=== PATIENT | male | born 1940 | race Caucasian/White ===

== ENCOUNTER 2023-05-21 18:05 | Emergency (ER) | payer MEDICARE, BC ==
[2023-05-21] MEDS ORDERED: Sodium Chloride 0.9% 10 ML Syringe FLUSH PRN (18:23)
[2023-05-21 18:29] LABS: BASOPHILS PERCENT AUTO 0.3 % (0.2-1.2); EOSINOPHILS ABSOLUTE AUTO 0.1 x10^3/uL (0.0-0.5); HEMATOCRIT 42.3 % (40.0-52.0); HEMOGLOBIN 14.3 g/dL (14.0-18.0); IMMATURE GRAN ABSOLUTE AUTO 0.02 x10^3/uL (0.00-0.07); LYMPHOCYTES ABSOLUTE AUTO 3.3 x10^3/uL (1.0-4.8); LYMPHOCYTES PERCENT AUTO 31.7 % (25.0-50.0); MEAN CORPUSCULAR HGB CONC 33.8 g/dL (32.0-36.0); MEAN CORPUSCULAR VOLUME 100.7 fL (78.0-93.0); MONOCYTES ABSOLUTE AUTO 1.8 x10^3/uL (0.0-0.8); NEUTROPHILS PERCENT AUTO 48.9 % (50.0-80.0); PLATELET COUNT,PLT 343 x10^3/uL (130-400); WHITE BLOOD CELL COUNT,WBC 10.3 x10^3/uL (4.0-10.0)
[2023-05-21 18:36] LABS: MONOCYTES PERCENT AUTO 17.9 % (2.0-11.0)
[2023-05-21 18:41] LABS: INR 0.9 (0.9-1.1); PROTHROMBIN TIME 10.1 SEC (9.5-12.2); PTT,PARTIAL THROMBOPLSTIN TIME 24.7 SEC (23.6-33.6)
[2023-05-21 18:45] LABS: A/G RATIO 1.09; ALANINE AMINOTRANSFERASE,ALT 18 U/L (16-63); ALBUMIN 3.8 g/dL (3.4-5.0); ALKALINE PHOSPHATASE 96 U/L (46-116); ASPARTATE AMNIOTRANSFERASE,AST 21 U/L (15-37); BILIRUBIN TOTAL 0.3 mg/dL (0.2-1.0); BLOOD UREA NITROGEN,BUN 16 mg/dL (7-18); CARBON DIOXIDE,CO2 31 mmol/L (21-32); CHLORIDE,CL 103 mmol/L (98-107); CREATINE KINASE,CK 101 U/L (39-308); CREATININE 1.2 mg/dL (0.70-1.30); GLUCOSE RANDOM 120 mg/dL (70-99); POTASSIUM,K 4.1 mmol/L (3.5-5.1); PROTEIN TOTAL,TP 7.3 g/dL (6.4-8.2); SODIUM,NA 139 mmol/L (136-145)
[2023-05-21 18:46] LABS: ANION GAP 9.1 mmol/L (5-15); ESTIMATED GFR 60 mL/min (>=60)
[2023-05-21 19:02] LABS: APPEARANCE,URINE CLEAR (CLEAR); BILIRUBIN,URINE NEGATIVE (NEGATIVE); COLOR,URINE YELLOW (YELLOW); GLUCOSE,URINE NEGATIVE (NEGATIVE); KETONES,URINE NEGATIVE (NEGATIVE); LEUKOCYTE ESTERASE,URINE TRACE (NEGATIVE); NITRITE,URINE NEGATIVE (NEGATIVE); OCCULT BLOOD,URINE NEGATIVE (NEGATIVE); PROTEIN,URINE NEGATIVE (NEGATIVE); UROBILINOGEN,URINE 0.2 EU/dL (0.2)
[2023-05-21 19:03] LABS: BACTERIA,URINE RARE /HPF (NOT SEEN); MUCUS,URINE OCCASIONAL /LPF (NOT SEEN); RBC,URINE NOT SEEN /HPF (NOT SEEN); SQUAMOUS EPITHELIAL CELLS,UR NOT SEEN /HPF (NOT SEEN); WBC,URINE 0-5 /HPF (NOT SEEN)
[2023-05-21] MEDS ORDERED: Labetalol 20 MG/4 ML Syringe IVPUSH ONE (19:25)
[2023-05-21] MEDS ORDERED: Tenecteplase 50 MG Kit IV STA (19:38)
== END 2023-05-21 20:03 | disposition short-term general hospital (02) ==
LOC: VM.ED 18:05
DX: I63.9 Cerebral infarction, unspecified (principal)
CPT/HCPCS: 37195; 70450; 80053; 81001; 82550; 82947; 84484; 85025; 85610; 85730; 87086; 92977; 93005; 93010; 99284; 99285-25; J3101; J3490